=== PATIENT | male | born 1945 | race Caucasian/White ===

== ENCOUNTER 2018-09-05 06:10 | Day surgery (SDC) | payer MEDICARE, OTHER ==
[~2018-09-05] VITALS: Ht 175.3 cm; Wt 94.3 kg
[~2018-09-05 06:10] MED LIST: ALLOPURINOL300 MG PO; B-12 DOTS500 MCG PO; COUMADIN10 MG PO; GABAPENTIN100 MG PO; GEMFIBROZIL600 MG PO; LISINOPRIL-HCT1 EACH PO; LISINOPRIL5 MG PO; LOVASTATIN20 MG PO; METFORMIN HCL500 MG PO; METOPROLOL SUCC50 MG PO; VITAMIN D31000 UNIT PO; VITAMIN D32000 UNIT PO; WARFARIN SODIUM10 MG PO
--- NOTE | 2018-09-05 11:43 | OR ---
[facility] [address], [place] [address] Signed DATE OF OPERATION: 09/05/2018 SURGEON: Michelle Rasmussen MD PREOPERATIVE DIAGNOSES: 1. Personal history of rectal cancer in 2007. 2. Maternal great grandfather and maternal grandmother with colon cancer. 3. Personal history of colonic polyps. 4. Diverticulosis. 5. Internal hemorrhoids. POSTOPERATIVE DIAGNOSES: 1. A 4-7 mm polyps at cecum x2, mid transverse colon x1, 60 cm x2, 55 cm x2, 38 x2 and 38 cm x1. 2. Minimal sigmoid diverticulosis. 3. Moderate internal hemorrhoids. PROCEDURE: Colonoscopy without biopsy. ESTIMATED BLOOD LOSS: None. INDICATIONS: Matthew is a 72-year-old gentleman, who I met in 2007 for his rectal cancer. He had a Jacob side-to-end stapled anastomosis. He has been through chemo and radiation therapy. He has also had colonic polyps removed in 2008, 2009, 2010 and 2014. He is known to have a little diverticulosis in the remaining colon along with internal hemorrhoids. He also explained that not only his paternal grandmother had colon cancer, but his maternal great grandfather also had colon cancer. He said overall he is doing fine. He is coming back now at a three year interval for a followup. Each time we find polyps for Matthew. In the office I had given him a pamphlet on colonoscopy. He is very aware that polyps grow and become cancerous over 8-12 years. He is also very familiar with colonoscopy along with its risks including, but not limited to gas bloating, crampy abdominal pain, bleeding, perforation, requiring surgery, and missed diagnosis. He always does well with his Versed and fentanyl. We always hold his Coumadin 4 days prior to the procedure. He has expressed understanding and would like to proceed. PROCEDURE NOTE: Matthew was taken into our endoscopy suite and placed in the left lateral decubitus Electronically Signed By: MICHELLE RASMUSSEN MD 09/05/18 1143 PATIENT NAME: MATTHEW FLOWERS OPERATIVE REPORT DATE OF : 47 REPORT #: [id number] PHYSICIAN: MICHELLE RASMUSSEN MD PCP: MICHELLE TAN MD REPORT IS CONFIDENTIAL AND NOT TO BE RELEASED WITHOUT AUTHORIZATION [facility] [address], [place] [address] Signed position. He was given IV sedation with 7 mg of Versed and 100 mcg of fentanyl. A digital rectal exam was performed and he does have some papillary ridges around the anus consistent with mild, but chronic pruritus ani. He has good sphincter tone. I could just feel anastomosis at the tip of my index finger. No masses noted. The adult colonoscope was introduced and advanced all around into the cecum under direct visualization of camera without difficulty. His prep was good. The scope was slowly withdrawn. The above-mentioned polyps were easily removed with the help of hot biopsy forceps. Again, he has diverticula in his left and proximal sigmoid colon. They were minimal to moderate in size, minimal in number, and scattered about. His anastomosis is widely patent at 12 cm. There was just enough room to retroflex the scope and he does have moderate internal hemorrhoids. After this, the gas was suctioned out. The colonoscope removed. Robert tolerated the procedure quite well. RECOMMENDATIONS: Robert will resume his Coumadin in 1 week. I will see him in the office in 7 to 10 days. He should probably stay on a three year rotation due the number of polyps we find each colonoscopy. MD ANNETTE Dickson/MODL /[id number] cc: MD Michelle Haji MD Mershed Alsamara, MD Copies: MICHELLE RASMUSSEN MD, MERSHED MD ~ Electronically Signed By: MICHELLE RASMUSSEN MD 09/05/18 1143 PATIENT NAME: MATTHEW FLOWERS OPERATIVE REPORT DATE OF : 47 REPORT #: [id number] PHYSICIAN: MICHELLE RASMUSSEN MD PCP: MICHELLE TAN MD REPORT IS CONFIDENTIAL AND NOT TO BE RELEASED WITHOUT AUTHORIZATION
== END 2018-09-05 09:10 | disposition home or self-care (01) ==
LOC: OPS 06:10 → DS 06:10 → OPS 06:45
DX: Z12.11 Encounter for screening for malignant neoplasm of colon (principal); K64.8 Other hemorrhoids; K57.30 Diverticulosis of large intestine without perforation or abscess without bleeding; L29.0 Pruritus ani; I10 Essential (primary) hypertension; E11.40 Type 2 diabetes mellitus with diabetic neuropathy, unspecified; I48.91 Unspecified atrial fibrillation; N40.0 Benign prostatic hyperplasia without lower urinary tract symptoms; E78.5 Hyperlipidemia, unspecified; M10.9 Gout, unspecified; Z79.899 Other long term (current) drug therapy; Z79.01 Long term (current) use of anticoagulants; Z79.84 Long term (current) use of oral hypoglycemic drugs; Z86.010 Personal history of colon polyps; Z87.891 Personal history of nicotine dependence; Z85.048 Personal history of other malignant neoplasm of rectum, rectosigmoid junction, and anus
CPT/HCPCS: 88305; 99153; G0500; J2250; J3010; J7120

== ENCOUNTER 2021-02-20 06:00 | Day surgery (SDC) | payer MEDICARE, OTHER ==
[~2021-02-20] VITALS: Ht 175.3 cm; Wt 100.5 kg
[~2021-02-20 06:00] MED LIST changes: +ASPIRIN81 MG PO; +ICOSAPENT ETHYL1 GM PO; +LOVASTATIN40 MG PO
--- NOTE | 2021-02-20 07:45 | NUR ---
PT ALERT, ORIENTED AND SEEMS PREPARED. ALL QUESTIONS ASKED ANSWERED, PT DID REQUEST PRAYER. WILL FOLLOW NEEDED
--- NOTE | 2021-02-20 09:13 | NUR ---
02/20/21 0913 Soraida Kimball 0905 PT ARRIVED TO PACU ON 10L VIA MASK, RESP EVEN AND UNLABORED. PT WAKES EASILY AND IS REORIENTED TO PACU. VSS. 0910 PT REPORTS 5/10 PAIN. PT RESTING IN BED WITH EYES OPEN.
--- NOTE | 2021-02-20 10:07 | NUR ---
PATIENT BACK TO ROOM FROM PACU. RECEIVED REPORT FROM ANDREA ROCK. VSS. PATIENT IS ON 2L OF O2 WITH SATS IN THE MIKEL 90'S. PATIENT IS AWAKE AND FEELING WELL. RATES PAIN 2/10. DENIES NAUSEA. DRESSING IS CLEAN, DRY, AND INTACT. ENCOURAGED PATIENT TO CALL IF FEELING SOB. PROVIDED PATIENT WITH WATER AND JELLO. CALL LIGHT WITHIN REACH.
--- NOTE | 2021-02-20 11:07 | NUR ---
PATIENT RESTING COMFORTABLY IN BED. VSS. ON 2L OF O2 WITH SATS IN THE HIGH 90'S. PATIENT IS DOING WELL. DENIES NAUSEA AND SOB. PAIN 2/10. DRESSING IS CLEAN, DRY, AND INTACT. PATIENT IS DRINKING WATER. CALL LIGHT WITHIN REACH.
--- NOTE | 2021-02-20 12:10 | NUR ---
PATIENT RESTING COMFORATABLY IN BED. VSS. O2 SATS HAVE BEEN STABLE ON RA. DENIES PAIN AND NAUSEA. DRESSING IS CLEAN, DRY, AND INTACT. CALL LIGHT WITHIN REACH.
--- NOTE | 2021-02-20 13:11 | NUR ---
PATIENT RESTING COMFORTABLY IN BED. VSS. O2 SATS ON RA AROUND 96. PATIENT STATES NO PAIN. DENIES NAUSEA. DRESSING IS CLEAN, DRY, AND INTACT. DENIES SOB. PATIENT HAS BEEN DRINKING WATER. CALL LIGHT WITHIN REACH.
--- NOTE | 2021-02-20 13:27 | NUR ---
REPORT FROM ARLETTE ROCK DAYSURGERY AT THIS TIME.
--- NOTE | 2021-02-20 13:49 | NUR ---
PT TO ROOM 119, UP TO AMBULATE TO BATHROOM VOIDED 200ML CLEAR YELLOW URINE. NO NAUSEA, NO PAIN TO REPORT. PT REPORTS NO ISSUE WITH BREATHING, V/S STABLE.
--- NOTE | 2021-02-20 15:08 | OR ---
[facility] [address], [place] [address] Signed DATE OF OPERATION: 02/20/2021 SURGEON: Pam Trinh MD PREOPERATIVE DIAGNOSIS: Primary hyperparathyroidism. POSTOPERATIVE DIAGNOSIS: Right lower pole parathyroid adenoma 600 mg (0.6 g). PROCEDURE: Neck exploration with excision of right lower pole parathyroid adenoma. ANESTHESIA: General endotracheal. Pam Phoenix CRNA. INDICATIONS: This 75-year-old white man is a patient of Dr. Ashlee Redd, was found to have hypercalcemia and additional evaluation showed hypercalcemia and elevated parathyroid hormone level. The patient has underlying atrial fibrillation and chronically anticoagulated with Coumadin. He has never had nephrolithiasis, but has had diarrhea from time to time. He has no psychiatric issues. No general abdominal pain. He underwent a sestamibi scan performed on October 23, 2019, which did not confirm a localization of a parathyroid adenoma. A subsequent repeat parathyroid scan (sestamibi scan) was performed on September 10, 2020 which showed findings consistent with right inferior pole parathyroid adenoma. His original lab studies showed a PTH of 111, an ionized calcium of 1.44. Serum calcium was otherwise normal at 10.1. Additional testing showed elevated calcium to 10.4 and most recently 10.6. The patient is admitted at this time to undergo excision of probable parathyroid adenoma. He understands the risks of bleeding, infection, nerve injury, failure to cure his hypercalcemia problem, possibility of double adenoma (less than 5%) as well as other unforeseen complications. Understanding of this, he wished to proceed. FINDINGS: Patient has a kyphotic spine and a shortened neck as well. A fair amount of distortion of the neck was noted. The thyroid gland itself was quite small, the adenoma was in the inferior pole as predicted and was relatively large. It measured 0.6 g (600 mg). Examination of the upper aspect of the right thyroid gland did not show any other adenoma and uncertainty as to normal parathyroid tissue. The left neck was essentially Electronically Signed By: PAM TRINH MD 02/20/21 1508 PATIENT NAME: KEITH FLOWERS OPERATIVE REPORT DATE OF : 47 REPORT #: [id number] PHYSICIAN: PAM TRINH MD PCP: ASHLEE REDD MD REPORT IS CONFIDENTIAL AND NOT TO BE RELEASED WITHOUT AUTHORIZATION [facility] [address], [place] [address] Signed not explored at this time. DESCRIPTION OF PROCEDURE: The patient was brought to the operating room and given a general endotracheal anesthetic with all due care. The patient has been off his Coumadin for several days. A Cook catheter was placed. Only minimal neck extension was possible given his distorted spine and kyphotic habitus. Arms were placed at the side. The neck was prepared with a chlorhexidine based solution and draped sterilely. He received preoperative antibiotic Ancef and sequential compression device stockings. The patient had impressively narrow window for transverse incision specifically, his thyroid cartilage was not that far from the sternal notch itself. Nevertheless, a transverse incision was made in the area what was considered as natural skin crease, dissection carried through the dermis sharply and ultimately with needlepoint electrocautery. The subcutaneous tissue and platysmal layer were divided with the needlepoint electrocautery and superior and inferior flaps were developed with blunt and electrocautery dissection. The midline strap muscles were easily identified and the avascular plane them was incised. The sternohyoid and subsequently, the sternothyroid muscles were dissected free with sharp dissection. Blunt dissection was undertaken over the minimal amount of right thyroid lobe and noted inferior to the lobe was the adenoma. This was gently dissected free using a Yaw hemostat elevating it from its unaided position. It was relatively large in size. It had a less characteristic color than usual, being more pale but clearly separate from the thyroid tissue itself. The vascular pedicles were secured with small clips for convenience and given a narrow area of work space and explanted completely. Irrigation was undertaken. There was no bleeding. The remaining thyroid tissue which was impressively minimal was dissected free laterally and posteriorly and I did not identify any adenoma, but no other clearly demonstrated parathyroid itself. There was one area that may have been a very atretic parathyroid gland, which was left in situ. The specimen was passed for permanent pathology. In the meantime, the midline strap muscles were reapproximated with interrupted 2-0 Vicryl, the platysmal layer secured with interrupted 4-0 Vicryl and skin closed with a running subcuticular 4-0 Vicryl. Steri-Strips were applied as was an Acticoat silver sponge dressing. Frozen pathology was returned and interpretation by Dr. Razo confirmed that this represented a parathyroid adenoma weighing 0.6 g (600 mg). It is anticipated the patient will be extubated in the operating room to be transferred to recovery room in good condition. Electronically Signed By: PAM TRINH MD 02/20/21 1508 PATIENT NAME: KEITH FLOWERS OPERATIVE REPORT DATE OF : 47 REPORT #: [id number] PHYSICIAN: PAM TRINH MD PCP: ASHLEE REDD MD REPORT IS CONFIDENTIAL AND NOT TO BE RELEASED WITHOUT AUTHORIZATION [facility] [address] [place] [address] Signed MD TAVO Watson/MODL /[id number] cc: Ashlee Redd MD Copies: ASHLEE REDD DMD ~ Electronically Signed By: PAM TRINH MD 02/20/21 1508 PATIENT NAME: KEITH FLOWERS OPERATIVE REPORT DATE OF : 47 REPORT #: [id number] PHYSICIAN: PAM TRINH MD PCP: ASHLEE REDD MD REPORT IS CONFIDENTIAL AND NOT TO BE RELEASED WITHOUT AUTHORIZATION
--- NOTE | 2021-02-20 16:31 | NUR ---
PT HAS ORDERED DINNER, HE HAS NO EXCESSIVE SWELLING AT INCISION SITE. HE REPORTS NO PAIN AT THIS TIME. NO SIGNS OR SYMPTOMS OF HYPOCALCEMIA. DRESSING SITE AT NECK CDI.
--- NOTE | 2021-02-20 18:35 | NUR ---
PT CAME FROM DAYSURGERY THIS AFTERNOON, HE HAS REPORTED NO PAIN OVER SHIFT, NO NAUSEA. HE HAS AMBULATED MULTIPLE TIMES TO BATHROOM, NO DRAINAGE ON DRESSING AT NECK. NO SYMPTOMS OF HYPOCALCEMIA. ON ROOM AIR. ON PULSE OXIMETRY.
--- NOTE | 2021-02-20 20:23 | NUR ---
AWAKE, ALERT AND ORIENTED. ON ROOM AIR, LUNGS CLEAR BILAT. IV R HAND IVF INFUSING PATENT. L NECK DRESSING CDI. TRACHEOSTOMY KIT AT BEDSIDE. ABD SOFT, NO C/O PAIN AT THIS TIME, CPOX AT BEDSIDE, POST OP. SCDS IN PLACE. TOLERATING FLUIDS WELL, NO EMESIS, VOIDING QS
--- NOTE | 2021-02-20 22:26 | NUR ---
Up to br, voided, back to bed, no sob noted, cpox back on, ivf infusing, scds in place, L neck dressing intact. cooperative, involuntary chronic body tremors present, pt states tremors are genetic, the males on his family has body trmors like him
--- NOTE | 2021-02-21 | NUR ---
RESTING, EYES CLOSED, ON ROOM AIR, NO C/O PAIN, IVF INFUSING, SCDS IN PLACE, DRESSING L THROAT INTACT
--- NOTE | 2021-02-21 01:37 | NUR ---
AWAKES EASILY, NO DISTRESS, ON ROOM AIR,MID AND LEFT SIDED THROAT DRESSING INTACT. BEDSIDE CPOX, SATS 96%, DENIES C/O PAIN, TOLERATING LIQUIDS WELL, VOIDING QS. HAD ICE TO THROAT AREA EARLIER, USES CLL LIGHT, SCDS IN PLACE. IVF INFUSING
--- NOTE | 2021-02-21 02:56 | NUR ---
UP TO BR, VOIDED, BACK TO BED, TOLERATED WELL, BACK TO BED
--- NOTE | 2021-02-21 04:29 | NUR ---
Pt on room air, bedside post op cpox. throat dressing CDI, has received Tylenol scheduled, with good pain relief. IVF infusing w/o problems, R hand. has voided QS, SCDS in place, up to br several times, tolerating well, has involuntary fine body tremors, chronic. alert, oriented, pleasant and cooperative.
--- NOTE | 2021-02-21 05:53 | NUR ---
awake, watching tv, fresh coffee given, tylenol scheduled med, 05/25 throat surgical site, dressing intact. no bruising. involuntary chronic all over tremors present. IVF infusing w/o problems, scds in place, voiding QS
[2021-02-21] MEDS ORDERED: OMEGA-3 ACID ETH1 GM PO (07:33)
--- NOTE | 2021-02-21 09:09 | NUR ---
MED REC COMPLETE
--- NOTE | 2021-02-21 09:30 | NUR ---
REPORT RECEIVED FROM NIGHT RN AND PT. CARE RESUMED. PT. IS ALERT AND ORIENTED. HE DENIES PAIN AT THIS TIME. THROAT DRESSING IS CDI WITHOUT HEMATOMA. HE DENIES HAVING DIFFICULTY SWALLOWING OR BREATHING. LUNGS CLEAR THROUGHOUT. IV FLUSHES WELL AND WNL. DISCUSSED POC, DISCHARGE MEDS. LEFT RESTING WITH CALL LIGHT IN REACH.
[2021-02-21] MEDS ORDERED: ACETAMINOPHEN500 MG PO (12:31)
[2021-02-21] MEDS ORDERED: CALCIUM CARBON200 MG PO (12:31)
--- NOTE | 2021-02-21 13:42 | NUR ---
DISCHARGE INSTRUCTIONS REVIEWED WITH PATIENT AND ALL QUESTIONS ANSWERED. VITALS STABLE AND PT. DENIES PAIN. PT. LEFT WITH IV REMOVED VIA WHEEL CHAIR WITH ALL BELONGINGS ACCOMPANIED BY METAL CUTTER.
--- NOTE | 2021-02-23 15:54 | PATH ---
[facility] [address], [place] [address] Signed SPECIMEN(S): A RIGHT LOWER POLE PARATHYROID ADENOMA SPECIMEN SOURCE: A. RIGHT LOWER POLE PARATHYROID ADENOMA CLINICAL HISTORY: Parathyroid adenoma. FROZEN SECTION DIAGNOSIS: A. Right lower pole parathyroid adenoma:Enlarged parathyroid gland (0.6 g). (Dr. Razo, 0848 hrs., 02-20-2021) Frozen section diagnoses called to Dr. Manjarrez. FB (under the direct supervision of a pathologist) The Gross Description was prepared using a voice recognition system. The report was reviewed for accuracy; however, sound-alike word errors, addition and/or deletions may occur. If there is any question about this report, please contact Client Services. FINAL PATHOLOGIC DIAGNOSIS: Parathyroid, right lower lobe: - Enlarged parathyroid (0.6 grams). TWK:[facility]:C2NR MICROSCOPIC EXAMINATION: Histologic sections of all submitted blocks are examined by light microscopy. These findings, together with the gross examination, support the pathologic diagnosis. GROSS DESCRIPTION: The specimen, labeled "Matthew Flowers, #1," and designated on the requisition "right lower lobe parathyroid adenoma," is received fresh for frozen section diagnosis and consists of a 0.6 g, vallejo-brown soft tissue fragment that is 1.4 x 0.8 x 0.5 cm. A portion of the specimen is submitted for frozen section resubmitted as received in cassette (A1). The remainder of the specimen is submitted in cassette A2. PERFORMING LABORATORY: Frozen section was performed by [facility], [facility], [address] [facility] [address], [address] ([id number]). The technical component was performed by [facility], [address] [place] [address], PATIENT NAME: MATTHEW FLOWERS PATHOLOGY DATE OF : 47 REPORT #: [id number] PHYSICIAN: JORDYN PATHOLOGY PCP: ASHLEE REDD MD REPORT IS CONFIDENTIAL AND NOT TO BE RELEASED WITHOUT AUTHORIZATION [facility] [address], [place] [address] [place] [address] ([employer] Power[employer] Mechanic Helper: Jesi Larson MD; CLIA# [id number]). Professional interpretation was performed by [facility], [address] [address] (CLIA# [id number]). Diagnostician: Rogerio Razo MD Pathologist Electronically Signed 02/23/2021 Copies: ~ PATIENT NAME: MATTHEW FLOWERS PATHOLOGY DATE OF : 47 REPORT #: [id number] PHYSICIAN: JORDYN PATHOLOGY PCP: ASHLEE REDD MD REPORT IS CONFIDENTIAL AND NOT TO BE RELEASED WITHOUT AUTHORIZATION
== END 2021-02-21 13:45 | disposition home or self-care (01) ==
LOC: DS 06:00 → MS 13:00 → DS 02-21 13:45
PROVIDERS: ATTEND Surgery
PROC: 0GBR0ZZ Excision of Parathyroid Gland, Open Approach (ICD-10-PCS; principal; 2021-02-20 06:45)
DX: D35.1 Benign neoplasm of parathyroid gland (principal); E21.0 Primary hyperparathyroidism; I48.91 Unspecified atrial fibrillation; Z79.01 Long term (current) use of anticoagulants; M40.202 Unspecified kyphosis, cervical region; I48.20 Chronic atrial fibrillation, unspecified; M10.9 Gout, unspecified; E11.9 Type 2 diabetes mellitus without complications; I10 Essential (primary) hypertension
CPT/HCPCS: 82310; J0330; J0690; J1100; J1885; J2250; J2405; J2704; J2765; J3010; J3590; J7121